=== PATIENT | male | born 1960 | race Caucasian/White ===

== ENCOUNTER 2021-04-30 06:15 | Emergency (ER) | payer MEDICARE, OTHER, SELFPAY ==
--- NOTE | ~2021-04-30 | CT_ITS ---
EXAMINATION: CT ABDOMEN AND PELVIS WITHOUT CONTRAST CLINICAL INFORMATION: Hematuria COMPARISON: None TECHNIQUE: Multidetector volumetric imaging was performed from the superior aspect of the liver through the pubic symphysis. Sagittal and coronal reformatted images were obtained on the technologist's workstation. This CT examination was performed using dose optimization techniques as appropriate, variously including the following: *Automated exposure control *Adjustment of mA and/or kV according to patient size (this includes techniques or standardized protocols for targeted exams where dose is matched to indication/reason for exam; i.e. extremities or head) *Use of iterative reconstruction technique DLP: 277 mGy-cm FINDINGS: Limited exam due to lack of IV contrast. LUNG BASES: The visualized lung bases are unremarkable. LIVER, GALLBLADDER, AND BILIARY TREE: The liver is normal in size, shape, and attenuation. No focal hepatic lesion or biliary ductal dilatation is present. The gallbladder is unremarkable with no evidence of radiopaque gallstones, gallbladder wall thickening, or obvious pericholecystic inflammatory changes. PANCREAS: Unremarkable. SPLEEN: Unremarkable. ADRENAL GLANDS: Unremarkable. KIDNEYS AND URETERS: The kidneys are normal in size, shape, and attenuation. No hydronephrosis, hydroureter, or calculi seen. No perinephric stranding. BLADDER: There is diffuse bladder wall thickening. There are no radiopaque calculi. GASTROINTESTINAL TRACT: There is scattered diverticuli, stool and gas seen throughout the colon without distention. The small bowel loops are normal caliber. Appendix is not visualized. There is no free air or free fluid. ABDOMINAL WALL: No significant hernia is appreciated. LYMPH NODES: Normal. VASCULAR: There is atherosclerotic calcification of abdominal aorta without aneurysmal dilatation. PELVIC VISCERA: The prostate gland is mildly enlarged with central gland calcification. OSSEOUS STRUCTURES: There is grade 2 anterolisthesis L5 over S1 with moderate spondylosis. No lytic or sclerotic process seen. CT/CT abdomen pelvis wo con IMPRESSION: No radiopaque urolith or hydroureteronephrosis. Empty bladder with diffuse bladder wall thickening. Mild prostate enlargement with central gland calcification. Colonic diverticulosis without diverticulitis. Moderate constipation. Grade 2 anterolisthesis L5 over S1 with moderate to significant spondylosis.
[2021-04-30 06:42] VITALS: BP 111/71; PULSE 105; RESP 18; TEMP 37.1; O2SAT 96; BMI 19.7
--- NOTE | 2021-04-30 06:46 | ED_ITS ---
HPI - Male Genitourinary General Chief complaint: Urogenital-Male Stated complaint: blood in urine Time Seen by Provider: 04/30/21 06:48 Source: patient Mode of arrival: ambulatory Limitations: no limitations History of Present Illness MD Complaint: other (dysuria and hematuria) Onset (ago): hour(s) (last several ) Duration: intermittent Location: penis Severity: moderate Quality: burning Relieving factors: none Exacerbating factors: urination Associated symptoms: Reports blood in urine Related Data Previous Rx's Medication Instructions Recorded cefuroxime axetil 500 mg tablet 500 mg PO BID 10 Days #20 tab 04/30/21 ondansetron 4 mg disintegrating 4 mg PO Q8H PRN #20 tab 04/30/21 tablet phenazopyridine 100 mg tablet 100 mg PO TID PRN #6 tab 04/30/21 (Pyridium) Allergies Allergy/AdvReac Type Severity Reaction Status Date / Time No Known Allergies Allergy Verified 04/30/21 06:44 Review of Systems Review of Systems: Constitutional : No Weight loss, No Fever, No Chills ENT/Mouth : No sore throat, No Rhinorrhea Eyes: No Swelling, No Redness Cardiovascular : No Chest Pain, No SOB, NoEdema Respiratory : No Cough, No Sputum, No Wheezing Gastrointestinal : no Nausea, no Vomiting, no Diarrhea, no abdominal Pain, No Hematochezia, No Melena Genitourinary : pos Dysuria, No Urinary Frequency, pos Hematuria, No Urgency Musculoskeletal : No joint pain, No Myalgias, No Joint Swelling Skin : No Skin Lesions, No rash Neuro : No Weakness, No Numbness, No Dizziness, No Headache Psych : No Anxiety/Panic, No Depression Heme/Lymph: No Bruising, No Lymphadenopathy Endocrine : No Polyuria, No Polydipsia All other systems reviewed and are negative. [facility] Past Medical History Attestation statement: The following information was validated with the patient. Medical History COPD (chronic obstructive pulmonary disease) Hypertension Social History Social History (Updated 04/30/21 @ 06:54 by Venita Kay DO) Patient Tobacco Use Status: Current everyday Tobacco user Use of substances other than those prescribed or required for medical reasons: No Advance Directives: No Advance Directives Information Provided: No Physical Exam Vital Signs: Vital Signs: Last Vital Signs Temp 98.8 F 04/30/21 06:42 Pulse 105 H 04/30/21 06:42 Resp 18 04/30/21 06:42 BP 111/71 04/30/21 06:42 Pulse Ox 96 04/30/21 06:42 Body Mass Index 19.7 Appearance: Alert. Oriented X3. No acute distress. Eyes: Pupils equal, round and reactive to light. ENT: Pharynx normal. Neck: Normal inspection. Neck supple. CVS: Normal heart rate and rhythm. Pulses normal. Respiratory: No respiratory distress. Breath sounds normal. Abdomen: Soft and non-tender. Skin: Skin warm and dry. Normal skin color. Normal skin turgor. Extremities: No lower extremity edema. No calf ttp Neuro: Oriented X 3. No motor deficit. No sensory deficit. Course Course Course Narrative: able to urinate, tolerating PO, kidney function stable, UTI no signs of sepsis can be managed at home chronically elevated WBC, no retention of urine MDM - Male Genitourinary MDM Narrative Medical decision making narrative: 61 yo male with COPD no AC therapy here with dysuria and hematuria - at this time labs, CT scan for mass, UA - dispo per results and findings. Likely UTI vs mass. Lab Data Result diagrams: 04/30/21 07:19 04/30/21 07:19 Labs: Lab Results 04/30/21 04/30/21 04/30/21 Range/Units 07:19 07:19 07:19 WBC 13.7 H (4.8-10.8) X10*3/uL RBC 4.11 L (4.60-5.80) X10*6/uL Hgb 13.2 L (14.0-18.0) g/dl Hct 39.6 L (42-52) % MCV 96.4 (80-98) fL MCH 32.1 (27.0-33.0) pg MCHC 33.3 (31.0-36.0) g/dl RDW 13.0 (11.0-16.0) % Plt Count 185 (160-400) X10*3/uL MPV 10.6 (9.4-12.4) fL Immature Gran % (Auto) 0.3 (0.0-0.4) % Neut % (Auto) 77.5 H (45-73) % Lymph % (Auto) 11.6 L (20-40) % [place] % (Auto) 9.4 (2-11) % Eos % (Auto) 1.0 (0-4) % Baso % (Auto) 0.2 (0-2) % Lymph # (Auto) 1.6 (1.2-4.9) X10*3/uL [place] # (Auto) 1.3 H (0.1-1.2) X10*3/uL Eos # (Auto) 0.1 (0.0-0.4) X10*3/uL Baso # (Auto) 0.0 (0.0-0.2) X10*3/uL Abs Immat Gran (auto) 0.04 H (0.00-0.03) X10*3/uL Absolute Neuts (auto) 10.6 H (2.0-8.3) X10*3/uL Absolute Nucleated RBC 0.000 (0.0-0.012) X10*3/uL Nucleated RBC % (auto) 0.0 (0.0-0.2) /100WBC Sodium 140 (135-145) mmol/L Potassium 4.7 (3.3-5.1) mmol/L Chloride 103 (96-108) mmol/L Carbon Dioxide 29 (22-29) mmol/L Anion Gap 13 (12-20) BUN 6 L (9-16) mg/dL Creatinine 0.89 (0.5-1.4) mg/dL Estim Creat Clear Calc 62.6 Estimated GFR > 60 Random Glucose 113 (60-115) mg/dL Lactic Acid 0.7 (0.5-2.0) mmol/L Calcium 9.4 (8.4-10.2) mg/dL Magnesium 2.7 H (1.6-2.6) mg/dL Total Bilirubin 0.8 (0.0-1.0) mg/dL Direct Bilirubin 0.3 (0.0-0.5) mg/dL AST 24 (5-37) U/L ALT 20 (0-40) U/L Alkaline Phosphatase 57 (39-117) U/L Total Protein 7.2 (6.5-8.0) g/dL Albumin 4.4 (3.5-5.0) g/dL Urine Color Urine Appearance Urine pH (5.0-8.0) Ur Specific [place] (1.005-1.025) Urine Protein (NEG-TRACE) MG/DL Urine Glucose (UA) (NEG) MG/DL Urine Ketones (NEG) MG/DL Urine Blood (NEG) Urine Nitrite (NEG) Ur Leukocyte Esterase (NEG) Urine RBC (0) /HPF Urine WBC (0-4) /HPF Ur Squamous Epith Cells /LPF Urine Bacteria /LPF 04/30/21 Range/Units 07:19 WBC (4.8-10.8) X10*3/uL RBC (4.60-5.80) X10*6/uL Hgb (14.0-18.0) g/dl Hct (42-52) % MCV (80-98) fL MCH (27.0-33.0) pg MCHC (31.0-36.0) g/dl RDW (11.0-16.0) % Plt Count (160-400) X10*3/uL MPV (9.4-12.4) fL Immature Gran % (Auto) (0.0-0.4) % Neut % (Auto) (45-73) % Lymph % (Auto) (20-40) % [place] % (Auto) (2-11) % Eos % (Auto) (0-4) % Baso % (Auto) (0-2) % Lymph # (Auto) (1.2-4.9) X10*3/uL [place] # (Auto) (0.1-1.2) X10*3/uL Eos # (Auto) (0.0-0.4) X10*3/uL Baso # (Auto) (0.0-0.2) X10*3/uL Abs Immat Gran (auto) (0.00-0.03) X10*3/uL Absolute Neuts (auto) (2.0-8.3) X10*3/uL Absolute Nucleated RBC (0.0-0.012) X10*3/uL Nucleated RBC % (auto) (0.0-0.2) /100WBC Sodium (135-145) mmol/L Potassium (3.3-5.1) mmol/L Chloride (96-108) mmol/L Carbon Dioxide (22-29) mmol/L Anion Gap (12-20) BUN (9-16) mg/dL Creatinine (0.5-1.4) mg/dL Estim Creat Clear Calc Estimated GFR Random Glucose (60-115) mg/dL Lactic Acid (0.5-2.0) mmol/L Calcium (8.4-10.2) mg/dL Magnesium (1.6-2.6) mg/dL Total Bilirubin (0.0-1.0) mg/dL Direct Bilirubin (0.0-0.5) mg/dL AST (5-37) U/L ALT (0-40) U/L Alkaline Phosphatase (39-117) U/L Total Protein (6.5-8.0) g/dL Albumin (3.5-5.0) g/dL Urine Color TAWNYA Urine Appearance CLOUDY Urine pH 7.0 (5.0-8.0) Ur Specific [place] 1.020 (1.005-1.025) Urine Protein 2+ H (NEG-TRACE) MG/DL Urine Glucose (UA) NEG (NEG) MG/DL Urine Ketones NEG (NEG) MG/DL Urine Blood 3+ H (NEG) Urine Nitrite POS H (NEG) Ur Leukocyte Esterase 3+ H (NEG) Urine RBC 50-75 H (0) /HPF Urine WBC 76-150 H (0-4) /HPF Ur Squamous Epith Cells NONE /LPF Urine Bacteria 1+ /LPF Discharge Plan Discharge Clinical Impression: Urinary tract infection Patient Disposition: Home, Self-Care Instructions: Urinary Tract Infection in Men (ED) Additional Instructions: return to ED for any worsening symptoms or concerns IMPRESSION:? No radiopaque urolith or hydroureteronephrosis. ? Empty bladder with diffuse bladder wall thickening. ? Mild prostate enlargement with central gland calcification. Prescriptions: New cefuroxime axetil 500 mg tablet 500 mg PO BID 10 Days Qty: 20 RF: 0 ondansetron 4 mg tablet,disintegrating 4 mg PO Q8H PRN (Reason: nausea and vomiting) Qty: 20 RF: 0 phenazopyridine [Pyridium] 100 mg tablet 100 mg PO TID PRN (Reason: pain) Qty: 6 RF: 0 Referrals: Gilbert Christianson NP [Primary Care Provider] - 2 days Stand Alone Forms: Work/School Release
[2021-04-30 07:26] LABS: MANUAL DIFF FLAG NO
[2021-04-30 07:29] LABS: Basophils Percent Auto 0.2 % (0-2); Eosinophils Absolute Auto 0.1 X10*3/uL (0.0-0.4); Hematocrit 39.6 % (42-52); Hemoglobin 13.2 g/dl (14.0-18.0); Imm Gran Abs Auto 0.04 X10*3/uL (0.00-0.03); Imm Gran Pct Auto 0.3 % (0.0-0.4); Lymphocytes Absolute Auto 1.6 X10*3/uL (1.2-4.9); Lymphocytes Percent Auto 11.6 % (20-40); Mean Corpuscular HGB Conc 33.3 g/dl (31.0-36.0); Mean Corpuscular Hemoglobin 32.1 pg (27.0-33.0); Mean Corpuscular Volume 96.4 fL (80-98); Mean Platelet Volume 10.6 fL (9.4-12.4); Monocytes Absolute Auto 1.3 X10*3/uL (0.1-1.2); Monocytes Percent Auto 9.4 % (2-11); Neutrophils Absolute Auto 10.6 X10*3/uL (2.0-8.3); Neutrophils Percent Auto 77.5 % (45-73); Platelet Count 185 X10*3/uL (160-400); Red Blood Count 4.11 X10*6/uL (4.60-5.80); White Blood Count 13.7 X10*3/uL (4.8-10.8)
[2021-04-30 07:30] LABS: Glucose Urine UA NEG (NEG); Leukocyte Esterase Urine 3+ (NEG); Nitrite Urine POS (NEG); UACC Culture Trigger YES; Urine Blood 3+ (NEG); Urine Ketones NEG (NEG); Urine Protein 2+ MG/DL (NEG-TRACE)
[2021-04-30 07:31] LABS: Appearance Urine CLOUDY; Color Urine AMBER
[2021-04-30 07:41] LABS: Bacteria Urine 1+ /LPF; RBC Urine 50-75 /HPF (0)
[2021-04-30 07:48] LABS: Lactic Acid 0.7 mmol/L (0.5-2.0)
[2021-04-30 07:53] LABS: Alanine Aminotransferase 20 U/L (0-40); Albumin Level 4.4 g/dL (3.5-5.0); Alkaline Phosphatase 57 U/L (39-117); Anion Gap 13 (12-20); Aspartate Amino Transferase 24 U/L (5-37); Bilirubin Direct 0.3 mg/dL (0.0-0.5); Bilirubin Total 0.8 mg/dL (0.0-1.0); Blood Urea Nitrogen 6 mg/dL (9-16); Calcium 9.4 mg/dL (8.4-10.2); Carbon Dioxide 29 mmol/L (22-29); Chloride 103 mmol/L (96-108); Creatinine Clr Calc Pharmacy 62.6; Estimated Glomerular Filt Rate > 60; Glucose Random 113 mg/dL (60-115); Magnesium 2.7 mg/dL (1.6-2.6); Potassium 4.7 mmol/L (3.3-5.1); Sodium 140 mmol/L (135-145); Total Protein 7.2 g/dL (6.5-8.0)
[2021-04-30] MEDS: cefTRIAXone sodium 1 GM in 0.9 % Sodium Chloride 50 ML IV (08:02)
[2021-04-30] MEDS: Albuterol Sulfate (0.083%) 2.5 MG/3 ML VIAL.NEB INHALE (08:08)
[2021-04-30 08:11] VITALS: PULSE 94; O2SAT 98
[2021-04-30 08:45] VITALS: BP 138/82; PULSE 88; RESP 18; O2SAT 95
== END 2021-04-30 08:47 | disposition home or self-care (01) ==
PROVIDERS: Emergency Provider Emergency Medicine; PCP Nurse Practitioner Family
DX: N39.0 Urinary tract infection, site not specified (principal); I10 Essential (primary) hypertension; F17.210 Nicotine dependence, cigarettes, uncomplicated
CPT/HCPCS: 36415; 74176; 80048; 80076; 81001; 83605; 83735; 85025; 87040; 87086; 87088; 87186; 94640; 96365; 99283; 99284; J0696

== ENCOUNTER 2022-01-30 12:39 | Emergency (ER) | payer MEDICARE, OTHER, SELFPAY ==
--- NOTE | ~2022-01-30 | XR_ITS ---
EXAMINATION: XR CHEST CLINICAL INFORMATION: Shortness of breath COMPARISON: Chest radiograph 10/10/[address] abdomen pelvis 04/30/2021 TECHNIQUE: 2 views of the chest were obtained. FINDINGS: Again seen are markedly hyperinflated lungs consistent with COPD. No infiltrates, effusions or lung masses are seen. Heart size is normal. XR/XR chest 2V IMPRESSION: COPD. No acute intrathoracic disease
[2022-01-30 12:54] VITALS: BP 145/65; PULSE 101; RESP 24; TEMP 36.9; O2SAT 94; BMI 17.7
[2022-01-30 14:28] LABS: MANUAL DIFF FLAG NO
[2022-01-30 14:33] LABS: Basophils Percent Auto 0.3 % (0-2); Eosinophils Percent Auto 0.3 % (0-4); Hematocrit 41.4 % (42.0-52.0); Hemoglobin 13.6 g/dl (14.0-18.0); Imm Gran Abs Auto 0.04 X10*3/uL (0.00-0.03); Imm Gran Pct Auto 0.3 % (0.0-0.4); Lymphocytes Absolute Auto 1.1 X10*3/uL (1.2-4.9); Mean Corpuscular HGB Conc 32.9 g/dl (31.0-36.0); Mean Corpuscular Hemoglobin 31.6 pg (27.0-33.0); Mean Corpuscular Volume 96.3 fL (80.0-98.0); Mean Platelet Volume 10.5 fL (9.4-12.4); Monocytes Absolute Auto 0.8 X10*3/uL (0.1-1.2); Monocytes Percent Auto 6.5 % (2-11); Neutrophils Absolute Auto 9.7 x10*3/uL (2.0-8.3); Neutrophils Percent Auto 83.6 % (45-73); Platelet Count 254 X10*3/uL (160-400); Red Cell Distribution Width 12.1 % (11.0-16.0); White Blood Count 11.7 X10*3/uL (4.8-10.8)
[2022-01-30 14:50] LABS: Alanine Aminotransferase 23 U/L (0-40); Albumin Level 4.4 g/dL (3.5-5.0); Alkaline Phosphatase 84 U/L (39-117); Anion Gap 15 (12-20); Aspartate Amino Transferase 28 U/L (5-37); Bilirubin Total 0.7 mg/dL (0.0-1.0); Blood Urea Nitrogen 14 mg/dL (9-16); Calcium 10.2 mg/dL (8.4-10.2); Carbon Dioxide 31 mmol/L (22-29); Chloride 90 mmol/L (96-108); Creatinine Clr Calc Pharmacy 57.8; Estimated Glomerular Filt Rate > 60; Glucose Random 203 mg/dL (60-115); Potassium 5.2 mmol/L (3.3-5.1); Sodium 131 mmol/L (135-145); Total Protein 7.5 g/dL (6.5-8.0)
[2022-01-30 15:01] LABS: COVID-19 Test Negative (Negative); IDNOW Serial# 16C4AD1C
[2022-01-30 15:02] LABS: Influenza A Negative (Negative); Influenza B2 Negative (Negative)
[2022-01-30 17:50] VITALS: BP 144/88; PULSE 98; RESP 20; O2SAT 95
--- NOTE | 2022-01-30 17:51 | ECG_ITS ---
Test Reason : dyspnea Blood Pressure : / mmHG Vent. Rate : 089 BPM Atrial Rate : 089 BPM P-R Int : 140 ms QRS Dur : 070 ms QT Int : 320 ms P-R-T Axes : 083 071 073 degrees QTc Int : 389 ms Normal sinus rhythm Septal infarct (cited on or before 10-OCT-2019) Abnormal ECG When compared with ECG of 10-OCT-2019 11:29, No significant change was found Referred By: Gisel Trinidad Electronically Signed By:Darrell Man
--- NOTE | 2022-01-30 17:53 | ED.SOB ---
HPI - SOB/Dyspnea General Chief Complaint: Dyspnea Stated Complaint: DIFFICULTY BREATHING, CONGESTION Time Seen by Provider: 01/30/22 17:41 Source: patient Mode of arrival: wheelchair Limitations: no limitations History of Present Illness HPI Narrative: 62 yo male with history of HTN, COPD who continues to smoke cigarettes here with increasing SOB, productive cough with green sputum x 4 days. No CP, leg swelling or leg pain, or fevers. Using nebulizers at home with continued symptoms Related Data Previous Rx's Medication Instructions Recorded cefuroxime axetil 500 mg tablet 500 mg PO BID 10 Days #20 tab 04/30/21 ondansetron 4 mg disintegrating 4 mg PO Q8H PRN #20 tab 04/30/21 tablet phenazopyridine 100 mg tablet 100 mg PO TID PRN #6 tab 04/30/21 (Pyridium) azithromycin 250 mg tablet 250 mg PO DAILY 4 Days #4 tab 01/30/22 prednisone 20 mg tablet 60 mg PO DAILY #12 tab 01/30/22 Allergies Allergy/AdvReac Type Severity Reaction Status Date / Time No Known Allergies Allergy Verified 01/30/22 12:54 Review of Systems Review of Systems: Yes all other systems are reviewed and are negative Constitutional: Constitutional: Reports no additional constitutional complaints, Denies body ache(s), Denies chills, Denies fever(s), Denies headache(s) and Denies weakness Eyes: Eyes: Reports no additional eye complaints and Denies change in vision ENT: Reports system reviewed and no additional complaints, except as documented, Denies dizziness, Denies headache(s), Denies nasal congestion, Denies nasal discharge and Denies neck pain Cardiovascular: Cardiovascular: Reports no additional cardiovascular complaints, Denies chest pain, Denies leg edema and Reports dyspnea Respiratory: Respiratory: Reports no additional respiratory complaints, Reports cough and Reports dyspnea Gastrointestinal: Gastrointestinal: Reports no additional gastrointestinal complaints, Denies abdominal pain, Denies diarrhea, Denies nausea and Denies vomiting Genitourinary: Genitourinary: Denies urinary incontinence Musculoskeletal: Musculoskeletal: Reports no additional musculoskeletal complaints, Denies back pain, Denies arthralgias, Denies joint swelling, Denies neck pain, Denies numbness and Denies tingling Integumentary/Breasts: Skin/Breast: Reports system reviewed and no additional complaints, except as docu and Denies rash Neurologic: Reports system reviewed and no additional complaints, except as documented, Denies Abnormal speech present, Denies dizziness, Denies headache(s), Denies numbness, Denies tingling and Denies weakness PMFSH Past Medical History Attestation statement: The following information was validated with the patient. Source: old records reviewed and nursing notes reviewed Medical History COPD (chronic obstructive pulmonary disease) Hypertension Social History Social History Patient Tobacco Use Status: Current everyday Tobacco user Advance Directives: No Advance Directives Information Provided: Yes Physical Exam Vital Signs: Vital Signs: Last Vital Signs Temp 98.4 F 01/30/22 12:54 Pulse 100 01/30/22 18:08 Resp 20 01/30/22 18:08 BP 145/82 H 01/30/22 18:08 Pulse Ox 97 01/30/22 18:08 BMI result Body Mass Index 17.7 Const: General: in distress Nutritional Appearance: thin Orientation/consciousness: patient oriented x3 Limitations: no limitations HEENT: Head: Yes normal to inspection Ears: hearing grossly normal bilaterally General nose exam: Normal external nose present Face and sinus: Yes normal facial exam Mouth: Normal oral and palatal mucosa present Throat: Yes posterior oropharynx normal Eyes: General: appearance normal, both eyes and all related structures Pupils: Equal, round and reactive pupils present Neck: Neck: Yes normal visual inspection Chest: Chest palpation & inspection: normal inspection of the chest Resp: Other: Tachypnea, leaning forward, speaking 1-2 words, diminished BS throughout Cardio: Rate: regular rate Rhythm: regular rhythm Peripheral pulses: Peripheral pulses 2+ throughout GI: Inspection: Yes normal to inspection Palpation (GI): Soft to palpation and nontender Auscultation: normal bowel sounds Back/Spine/Pelvis: Thoracic/Lumbar Spine: thoracic and lumbar spine normal to inspection Skin: General skin exam: no rashes or lesions noted Neuro: General: patient oriented x3, no focal motor deficits and normal sensation to monofilament Cranial nerves: Yes Equal, round and reactive pupils present Cognition (Neuro): normal cognition Speech: No Abnormal speech present Gait exam (Neuro): Normal gait present Motor exam (neuro): 5/5 motor strength present throughout Extrem: General: Yes normal to inspection, Yes no pedal edema and Yes no calf tenderness Course Course Course Narrative: [age] yo male w/ history of HTN, COPD here with increasing SOB, productive cough x 4 days. On arrival the patient is tachypneic, tachycardic, leaning forward, speaking 1-2 word phrases, diminished breath sounds throughout. Will obtain labs, EKG, chest x-ray, COVID screen. This time infection is suspected. Antibiotics ordered. Will give Solu-Medrol, DuoNeb. Reevaluation(s) Reevaluation #1: Labs show mild leukocytosis was is actually chronic and improved from previous. Corrected sodium was 133. EKG and troponin are negative. Chest x-ray shows no acute finding with the exception of COPD. COVID and flu screen are negative. Patient is resting more comfortably but with any movement is quite tachypneic. 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 I did recommend this d/t tachypnea with exertion although oxygen saturation has been stable. Patient tells me that he will continue his nebulizers at home. He tells me overall he is feeling better and declined admission. I instructed him that he is welcome to return at any time. Time: 19:00 MDM - SOB/Dyspnea MDM Narrative Medical decision making narrative: copd exacerbation, pna, viral syndrome PE -less likely with no clinical findings concerning for dvt, no hypoxia. Tachypnea secondary to CLD. 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 Medical Records Attestation: I reviewed the patient's medical records. Lab Data Attestation: I reviewed the patient's lab results. Result diagrams: 01/30/22 14:14 01/30/22 14:14 Labs: Lab Results 01/30/22 01/30/22 01/30/22 Range/Units 14:14 14:14 14:17 WBC 11.7 H (4.8-10.8) X10*3/uL RBC 4.30 L (4.60-5.80) X10*6/uL Hgb 13.6 L (14.0-18.0) g/dl Hct 41.4 L (42.0-52.0) % MCV 96.3 (80.0-98.0) fL MCH 31.6 (27.0-33.0) pg MCHC 32.9 (31.0-36.0) g/dl RDW 12.1 (11.0-16.0) % Plt Count 254 (160-400) X10*3/uL MPV 10.5 (9.4-12.4) fL Immature Gran % (Auto) 0.3 (0.0-0.4) % Neut % (Auto) 83.6 H (45-73) % Lymph % (Auto) 9.0 L (20-40) % [place] % (Auto) 6.5 (2-11) % Eos % (Auto) 0.3 (0-4) % Baso % (Auto) 0.3 (0-2) % Lymph # (Auto) 1.1 L (1.2-4.9) X10*3/uL [place] # (Auto) 0.8 (0.1-1.2) X10*3/uL Eos # (Auto) 0.0 (0.0-0.4) X10*3/uL Baso # (Auto) 0.0 (0.0-0.2) X10*3/uL Abs Immat Gran (auto) 0.04 H (0.00-0.03) X10*3/uL Absolute Neuts (auto) 9.7 H (2.0-8.3) x10*3/uL Absolute Nucleated RBC 0.000 (0.0-0.012) X10*3/uL Nucleated RBC % (auto) 0.0 (0.0-0.2) /100WBC PT (9.9-13.0) SEC INR (0.9-1.1) Sodium 131 L (135-145) mmol/L Potassium 5.2 H (3.3-5.1) mmol/L Chloride 90 L (96-108) mmol/L Carbon Dioxide 31 H (22-29) mmol/L Anion Gap 15 (12-20) BUN 14 (9-16) mg/dL Creatinine 0.91 (0.5-1.4) mg/dL Estim Creat Clear Calc 57.8 Estimated GFR > 60 Random Glucose 203 H D (60-115) mg/dL Lactic Acid (0.5-2.0) mmol/L Calcium 10.2 D (8.4-10.2) mg/dL Total Bilirubin 0.7 (0.0-1.0) mg/dL AST 28 (5-37) U/L ALT 23 (0-40) U/L Alkaline Phosphatase 84 D (39-117) U/L Troponin I High Sens (<3.5-35.0) ng/L Total Protein 7.5 (6.5-8.0) g/dL Albumin 4.4 (3.5-5.0) g/dL COVID-19 (SKYLER) (Negative) COVID-19 Clin Com Influenza Type A (ALAN) Negative (Negative) Influenza Type B (ALAN) Negative (Negative) Influenza A & B Note See Note 01/30/22 01/30/22 01/30/22 Range/Units 14:17 18:01 18:01 WBC (4.8-10.8) X10*3/uL RBC (4.60-5.80) X10*6/uL Hgb (14.0-18.0) g/dl Hct (42.0-52.0) % MCV (80.0-98.0) fL MCH (27.0-33.0) pg MCHC (31.0-36.0) g/dl RDW (11.0-16.0) % Plt Count (160-400) X10*3/uL MPV (9.4-12.4) fL Immature Gran % (Auto) (0.0-0.4) % Neut % (Auto) (45-73) % Lymph % (Auto) (20-40) % [place] % (Auto) (2-11) % Eos % (Auto) (0-4) % Baso % (Auto) (0-2) % Lymph # (Auto) (1.2-4.9) X10*3/uL Branch # (Auto) (0.1-1.2) X10*3/uL Eos # (Auto) (0.0-0.4) X10*3/uL Baso # (Auto) (0.0-0.2) X10*3/uL Abs Immat Gran (auto) (0.00-0.03) X10*3/uL Absolute Neuts (auto) (2.0-8.3) x10*3/uL Absolute Nucleated RBC (0.0-0.012) X10*3/uL Nucleated RBC % (auto) (0.0-0.2) /100WBC PT 11.4 (9.9-13.0) SEC INR 1.0 (0.9-1.1) Sodium (135-145) mmol/L Potassium (3.3-5.1) mmol/L Chloride (96-108) mmol/L Carbon Dioxide (22-29) mmol/L Anion Gap (12-20) BUN (9-16) mg/dL Creatinine (0.5-1.4) mg/dL Estim Creat Clear Calc Estimated GFR Random Glucose (60-115) mg/dL Lactic Acid (0.5-2.0) mmol/L Calcium (8.4-10.2) mg/dL Total Bilirubin (0.0-1.0) mg/dL AST (5-37) U/L ALT (0-40) U/L Alkaline Phosphatase (39-117) U/L Troponin I High Sens < 3.5 (<3.5-35.0) ng/L Total Protein (6.5-8.0) g/dL Albumin (3.5-5.0) g/dL COVID-19 (SKYLER) Negative (Negative) COVID-19 Clin Com See Note Influenza Type A (ALAN) (Negative) Influenza Type B (ALAN) (Negative) Influenza A & B Note 01/30/22 Range/Units 18:01 WBC (4.8-10.8) X10*3/uL RBC (4.60-5.80) X10*6/uL Hgb (14.0-18.0) g/dl Hct (42.0-52.0) % MCV (80.0-98.0) fL MCH (27.0-33.0) pg MCHC (31.0-36.0) g/dl RDW (11.0-16.0) % Plt Count (160-400) X10*3/uL MPV (9.4-12.4) fL Immature Gran % (Auto) (0.0-0.4) % Neut % (Auto) (45-73) % Lymph % (Auto) (20-40) % Branch % (Auto) (2-11) % Eos % (Auto) (0-4) % Baso % (Auto) (0-2) % Lymph # (Auto) (1.2-4.9) X10*3/uL Branch # (Auto) (0.1-1.2) X10*3/uL Eos # (Auto) (0.0-0.4) X10*3/uL Baso # (Auto) (0.0-0.2) X10*3/uL Abs Immat Gran (auto) (0.00-0.03) X10*3/uL Absolute Neuts (auto) (2.0-8.3) x10*3/uL Absolute Nucleated RBC (0.0-0.012) X10*3/uL Nucleated RBC % (auto) (0.0-0.2) /100WBC PT (9.9-13.0) SEC INR (0.9-1.1) Sodium (135-145) mmol/L Potassium (3.3-5.1) mmol/L Chloride (96-108) mmol/L Carbon Dioxide (22-29) mmol/L Anion Gap (12-20) BUN (9-16) mg/dL Creatinine (0.5-1.4) mg/dL Estim Creat Clear Calc Estimated GFR Random Glucose (60-115) mg/dL Lactic Acid 1.0 (0.5-2.0) mmol/L Calcium (8.4-10.2) mg/dL Total Bilirubin (0.0-1.0) mg/dL AST (5-37) U/L ALT (0-40) U/L Alkaline Phosphatase (39-117) U/L Troponin I High Sens (<3.5-35.0) ng/L Total Protein (6.5-8.0) g/dL Albumin (3.5-5.0) g/dL COVID-19 (SKYLER) (Negative) COVID-19 Clin Com Influenza Type A (AALN) (Negative) Influenza Type B (ALAN) (Negative) Influenza A & B Note ECG Data Attestation: I personally reviewed and interpreted this ECG as follows: ECG interpretation date: 01/30/22 ECG interpretation time: 18:11 Interpretation: Normal sinus rhythm with a rate 89, normal ND, normal QRS, normal QT Discharge Plan Discharge Clinical Impression: Acute exacerbation of chronic obstructive airways disease Patient Disposition: Home, Self-Care Instructions: COPD (Chronic Obstructive Pulmonary Disease) (ED) Additional Instructions: We discussed staying overnight for treatment with steroids, antibitiocs and nebulizers but you declined this Continue your nebulizers at home Your next dose of antibiotics and steroids start tomorrow You are welcome to return any time Prescriptions: New azithromycin 250 mg tablet 250 mg PO DAILY 4 Days Qty: 4 0RF Rx Instructions: start on day 2 of therapy prednisone 20 mg tablet 60 mg PO DAILY Qty: 12 0RF No Action cefuroxime axetil 500 mg tablet 500 mg PO BID 10 Days Qty: 20 0RF ondansetron 4 mg tablet,disintegrating 4 mg PO Q8H PRN (Reason: nausea and vomiting) Qty: 20 0RF phenazopyridine [Pyridium] 100 mg tablet 100 mg PO TID PRN (Reason: pain) Qty: 6 0RF Referrals: Gilbert Christianson NP [Primary Care Provider] - 1 week
[2022-01-30 18:02] VITALS: PULSE 95; RESP 21; O2SAT 98
[2022-01-30] MEDS: Albuterol/Iprat 2.5/0.5MG 3 ML AMPUL.NEB INHALE (18:02)
[2022-01-30 18:08] VITALS: BP 145/82; PULSE 100; RESP 20; O2SAT 97
[2022-01-30] MEDS: methylPREDNISolone Sod Succ 125 MG/2 ML VIAL IVPUSH (18:08)
[2022-01-30] MEDS: cefTRIAXone sodium 1 GM in 0.9 % Sodium Chloride 50 ML IV (18:09)
[2022-01-30 18:32] LABS: Prothrombin Time 11.4 SEC (9.9-13.0)
[2022-01-30 18:36] LABS: Troponin-I High Sensitivity < 3.5 ng/L (<3.5-35.0)
[2022-01-30] MEDS: Azithromycin 500 MG TABLET PO (19:41)
== END 2022-01-30 20:20 | disposition home or self-care (01) ==
PROVIDERS: Nurse Practitioner Family; Emergency Provider Emergency Medicine; PCP Nurse Practitioner Family
DX: J44.1 Chronic obstructive pulmonary disease with (acute) exacerbation (principal); R06.02 Shortness of breath; R00.0 Tachycardia, unspecified; Z20.822 Contact with and (suspected) exposure to COVID-19; I10 Essential (primary) hypertension; F17.200 Nicotine dependence, unspecified, uncomplicated
CPT/HCPCS: 71046; 80053; 83605; 84484; 85025; 85610; 87040; 87502; 87635; 93005; 94640; 96365; 96375; 99284; J0696; J2930

== ENCOUNTER 2022-09-16 21:12 | Emergency (ER) | payer MEDICARE, OTHER, SELFPAY ==
--- NOTE | ~2022-09-16 | CT_ITS ---
EXAMINATION: CT angio head neck, CT head/brain wo IV con, CT cervical spine wo IV con CLINICAL INFORMATION: Reason for Exam TIA/ CVA, slurred speech COMPARISON: None. TECHNIQUE: Initial noncontrast business analysis professional imaging of the head and cervical spine was performed. Noncontrast head CT was also performed. Test bolus sequences followed by intravenous administration 70 mL of Omnipaque 350. Helical imaging was performed in the axial plane from the aortic arch to the skull vertex. Delayed postcontrast imaging of the head was also performed. The data was processed at the operating room technologist's workstation for generation of MIP sequences. Angled MIPs and volume rendered reformatted images were also generated at an offline 3D workstation. Stenoses are assessed in accordance with NASCET criteria unless otherwise indicated. DLP: 1534 mGy-cm This CT examination was performed using dose optimization techniques as appropriate, variously including the following: *Automated exposure control. *Adjustment of mA and/or kV according to patient size (this includes techniques or standardized protocols for targeted exams where dose is matched to indication/reason for exam; i.e. extremities or head). *Use of iterative reconstruction technique. FINDINGS: CT Head: No acute osseous or soft tissue abnormality. The mastoid air cells and visualized portions of the paranasal sinuses are well aerated. There is no evidence of acute intracranial hemorrhage or territorial infarction. No abnormal mass effect or midline shift is seen. Teran to white matter differentiation is well preserved. No extra-axial fluid collections are identified. No hydrocephalus. No significant volume loss. There is no abnormal attenuation within the brain parenchyma. Hyperdensity along the distal left M1 and proximal M2 segments corresponding to thrombus as demonstrated on CTA. CT cervical spine: There is no evidence of acute cervical spine fracture. Vertebral bodies remain normal in height. Alignment is maintained. Moderate to advanced multilevel cervical spondylosis. No pre- or paravertebral soft tissue abnormality is identified. CT Neck: The thyroid gland is normal. Large lipomas involving the right supraclavicular fossa and upper anterior chest wall. CT Upper Chest: Moderate pulmonary emphysema. Partially visualized spiculated pulmonary nodule in the left upper lobe. The upper mediastinum are within normal limits. Neck CTA: Aortic Arch: Normal contour and caliber. Classic 3 vessel branching pattern of the aortic arch. Great Vessel Origins: Mild calcified atherosclerotic disease without significant stenosis of the branch origins. Right Common Carotid Artery: No focal stenosis or occlusion. Cervical Right Internal Carotid Artery: Calcific atherosclerotic disease of the carotid bulb and proximal internal carotid artery causing less than 50% stenosis. Left Common Carotid Artery: Mild stenosis of the mid left common carotid artery related to partially calcified atherosclerotic plaque. Cervical Left Internal Carotid Artery: Heavy atherosclerotic calcification of the left carotid bifurcation with complete occlusion of the left internal carotid artery from its origin. There is absent opacification of the entire cervical course of the left ICA. Cervical Right Vertebral Artery: No focal stenosis or occlusion. Cervical Left Vertebral Artery: Slightly dominant No focal stenosis or occlusion. Brain CTA: Intracranial Internal Carotid Arteries: There is gradual reconstitution of the proximal petrous left internal carotid artery which otherwise appears grossly patent throughout its intracranial course. No significant stenosis of the intracranial right internal carotid artery. Right Anterior Cerebral Artery: Normal A1 segment. Normal opacification of the distal CHIO segments. Left Anterior Cerebral Artery: Normal A1 segment. Normal opacification of the distal CHIO segments. Anterior Communicating Artery: Normal. Right Middle Cerebral Artery: Normal M1 segment of the MCA without focal stenosis or occlusion. Normal arborization of the distal segments. Left Middle Cerebral Artery: There is tandem near occlusive thrombus involving the mid to distal M1 segment of the left MCA beginning approximately 6 mm from the vessel origin and long segment occlusion of a left M2 branch in the anterior sylvian fissure. There is some reconstitution of the distal left MCA arterial tree, likely via collateralization. Right Vertebral Artery: Normal V4 segment. Left Vertebral Artery: Normal V4 segment. Basilar Artery: Normal without focal stenosis or occlusion. Normal appearance of the proximal superior cerebellar arteries. Right Posterior Cerebral Artery: Normal P1 segment. Normal opacification of the distal LEAD TINNER segments. Left Posterior Cerebral Artery: Normal P1 segment. Normal opacification of the distal LEAD TINNER segments. Normal opacification of the superior sagittal, straight, transverse, and sigmoid sinuses. CT/CT angio head neck IMPRESSION: 1. 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 Near occlusive thrombi involving the mid to distal M1 segment of the left MCA and complete occlusion of a left M2 branch. 3. No acute intracranial hemorrhage, mass effect, hydrocephalus, or acute territorial edematous infarction. 4. No acute fracture or traumatic malalignment of the cervical spine. 5. Pulmonary emphysema and partially visualized spiculated pulmonary nodule in the left upper lobe, suspicious for malignancy. Recommend further evaluation with dedicated CT of the chest when clinically appropriate. 6. Large right anterior chest wall and supraclavicular lipomas. Impression #1-[address] Ron on 09/16/2022 11:18 PM
--- NOTE | ~2022-09-16 | CT_ITS ---
EXAMINATION: CT angio head neck, CT head/brain wo IV con, CT cervical spine wo IV con CLINICAL INFORMATION: Reason for Exam TIA/ CVA, slurred speech COMPARISON: None. TECHNIQUE: Initial noncontrast structural draftsman imaging of the head and cervical spine was performed. Noncontrast head CT was also performed. Test bolus sequences followed by intravenous administration 70 mL of Omnipaque 350. Helical imaging was performed in the axial plane from the aortic arch to the skull vertex. Delayed postcontrast imaging of the head was also performed. The data was processed at the lab animal technologist's workstation for generation of MIP sequences. Angled MIPs and volume rendered reformatted images were also generated at an offline 3D workstation. Stenoses are assessed in accordance with NASCET criteria unless otherwise indicated. DLP: 1534 mGy-cm This CT examination was performed using dose optimization techniques as appropriate, variously including the following: *Automated exposure control. *Adjustment of mA and/or kV according to patient size (this includes techniques or standardized protocols for targeted exams where dose is matched to indication/reason for exam; i.e. extremities or head). *Use of iterative reconstruction technique. FINDINGS: CT Head: No acute osseous or soft tissue abnormality. The mastoid air cells and visualized portions of the paranasal sinuses are well aerated. There is no evidence of acute intracranial hemorrhage or territorial infarction. No abnormal mass effect or midline shift is seen. Teran to white matter differentiation is well preserved. No extra-axial fluid collections are identified. No hydrocephalus. No significant volume loss. There is no abnormal attenuation within the brain parenchyma. Hyperdensity along the distal left M1 and proximal M2 segments corresponding to thrombus as demonstrated on CTA. CT cervical spine: There is no evidence of acute cervical spine fracture. Vertebral bodies remain normal in height. Alignment is maintained. Moderate to advanced multilevel cervical spondylosis. No pre- or paravertebral soft tissue abnormality is identified. CT Neck: The thyroid gland is normal. Large lipomas involving the right supraclavicular fossa and upper anterior chest wall. CT Upper Chest: Moderate pulmonary emphysema. Partially visualized spiculated pulmonary nodule in the left upper lobe. The upper mediastinum are within normal limits. Neck CTA: Aortic Arch: Normal contour and caliber. Classic 3 vessel branching pattern of the aortic arch. Great Vessel Origins: Mild calcified atherosclerotic disease without significant stenosis of the branch origins. Right Common Carotid Artery: No focal stenosis or occlusion. Cervical Right Internal Carotid Artery: Calcific atherosclerotic disease of the carotid bulb and proximal internal carotid artery causing less than 50% stenosis. Left Common Carotid Artery: Mild stenosis of the mid left common carotid artery related to partially calcified atherosclerotic plaque. Cervical Left Internal Carotid Artery: Heavy atherosclerotic calcification of the left carotid bifurcation with complete occlusion of the left internal carotid artery from its origin. There is absent opacification of the entire cervical course of the left ICA. Cervical Right Vertebral Artery: No focal stenosis or occlusion. Cervical Left Vertebral Artery: Slightly dominant No focal stenosis or occlusion. Brain CTA: Intracranial Internal Carotid Arteries: There is gradual reconstitution of the proximal petrous left internal carotid artery which otherwise appears grossly patent throughout its intracranial course. No significant stenosis of the intracranial right internal carotid artery. Right Anterior Cerebral Artery: Normal A1 segment. Normal opacification of the distal CHIO segments. Left Anterior Cerebral Artery: Normal A1 segment. Normal opacification of the distal CHIO segments. Anterior Communicating Artery: Normal. Right Middle Cerebral Artery: Normal M1 segment of the MCA without focal stenosis or occlusion. Normal arborization of the distal segments. Left Middle Cerebral Artery: There is tandem near occlusive thrombus involving the mid to distal M1 segment of the left MCA beginning approximately 6 mm from the vessel origin and long segment occlusion of a left M2 branch in the anterior sylvian fissure. There is some reconstitution of the distal left MCA arterial tree, likely via collateralization. Right Vertebral Artery: Normal V4 segment. Left Vertebral Artery: Normal V4 segment. Basilar Artery: Normal without focal stenosis or occlusion. Normal appearance of the proximal superior cerebellar arteries. Right Posterior Cerebral Artery: Normal P1 segment. Normal opacification of the distal [employer] segments. Left Posterior Cerebral Artery: Normal P1 segment. Normal opacification of the distal [employer] segments. Normal opacification of the superior sagittal, straight, transverse, and sigmoid sinuses. CT/CT head/brain wo IV con IMPRESSION: 1. 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 Near occlusive thrombi involving the mid to distal M1 segment of the left MCA and complete occlusion of a left M2 branch. 3. No acute intracranial hemorrhage, mass effect, hydrocephalus, or acute territorial edematous infarction. 4. No acute fracture or traumatic malalignment of the cervical spine. 5. Pulmonary emphysema and partially visualized spiculated pulmonary nodule in the left upper lobe, suspicious for malignancy. Recommend further evaluation with dedicated CT of the chest when clinically appropriate. 6. Large right anterior chest wall and supraclavicular lipomas. Impression #1-[address] Ron on 09/16/2022 11:18 PM
--- NOTE | ~2022-09-16 | CT_ITS ---
EXAMINATION: CT angio head neck, CT head/brain wo IV con, CT cervical spine wo IV con CLINICAL INFORMATION: Reason for Exam TIA/ CVA, slurred speech COMPARISON: None. TECHNIQUE: Initial noncontrast audit partner imaging of the head and cervical spine was performed. Noncontrast head CT was also performed. Test bolus sequences followed by intravenous administration 70 mL of Omnipaque 350. Helical imaging was performed in the axial plane from the aortic arch to the skull vertex. Delayed postcontrast imaging of the head was also performed. The data was processed at the optometric technologist's workstation for generation of MIP sequences. Angled MIPs and volume rendered reformatted images were also generated at an offline 3D workstation. Stenoses are assessed in accordance with NASCET criteria unless otherwise indicated. DLP: 1534 mGy-cm This CT examination was performed using dose optimization techniques as appropriate, variously including the following: *Automated exposure control. *Adjustment of mA and/or kV according to patient size (this includes techniques or standardized protocols for targeted exams where dose is matched to indication/reason for exam; i.e. extremities or head). *Use of iterative reconstruction technique. FINDINGS: CT Head: No acute osseous or soft tissue abnormality. The mastoid air cells and visualized portions of the paranasal sinuses are well aerated. There is no evidence of acute intracranial hemorrhage or territorial infarction. No abnormal mass effect or midline shift is seen. Teran to white matter differentiation is well preserved. No extra-axial fluid collections are identified. No hydrocephalus. No significant volume loss. There is no abnormal attenuation within the brain parenchyma. Hyperdensity along the distal left M1 and proximal M2 segments corresponding to thrombus as demonstrated on CTA. CT cervical spine: There is no evidence of acute cervical spine fracture. Vertebral bodies remain normal in height. Alignment is maintained. Moderate to advanced multilevel cervical spondylosis. No pre- or paravertebral soft tissue abnormality is identified. CT Neck: The thyroid gland is normal. Large lipomas involving the right supraclavicular fossa and upper anterior chest wall. CT Upper Chest: Moderate pulmonary emphysema. Partially visualized spiculated pulmonary nodule in the left upper lobe. The upper mediastinum are within normal limits. Neck CTA: Aortic Arch: Normal contour and caliber. Classic 3 vessel branching pattern of the aortic arch. Great Vessel Origins: Mild calcified atherosclerotic disease without significant stenosis of the branch origins. Right Common Carotid Artery: No focal stenosis or occlusion. Cervical Right Internal Carotid Artery: Calcific atherosclerotic disease of the carotid bulb and proximal internal carotid artery causing less than 50% stenosis. Left Common Carotid Artery: Mild stenosis of the mid left common carotid artery related to partially calcified atherosclerotic plaque. Cervical Left Internal Carotid Artery: Heavy atherosclerotic calcification of the left carotid bifurcation with complete occlusion of the left internal carotid artery from its origin. There is absent opacification of the entire cervical course of the left ICA. Cervical Right Vertebral Artery: No focal stenosis or occlusion. Cervical Left Vertebral Artery: Slightly dominant No focal stenosis or occlusion. Brain CTA: Intracranial Internal Carotid Arteries: There is gradual reconstitution of the proximal petrous left internal carotid artery which otherwise appears grossly patent throughout its intracranial course. No significant stenosis of the intracranial right internal carotid artery. Right Anterior Cerebral Artery: Normal A1 segment. Normal opacification of the distal CHIO segments. Left Anterior Cerebral Artery: Normal A1 segment. Normal opacification of the distal CHIO segments. Anterior Communicating Artery: Normal. Right Middle Cerebral Artery: Normal M1 segment of the MCA without focal stenosis or occlusion. Normal arborization of the distal segments. Left Middle Cerebral Artery: There is tandem near occlusive thrombus involving the mid to distal M1 segment of the left MCA beginning approximately 6 mm from the vessel origin and long segment occlusion of a left M2 branch in the anterior sylvian fissure. There is some reconstitution of the distal left MCA arterial tree, likely via collateralization. Right Vertebral Artery: Normal V4 segment. Left Vertebral Artery: Normal V4 segment. Basilar Artery: Normal without focal stenosis or occlusion. Normal appearance of the proximal superior cerebellar arteries. Right Posterior Cerebral Artery: Normal P1 segment. Normal opacification of the distal SAND SCREENER segments. Left Posterior Cerebral Artery: Normal P1 segment. Normal opacification of the distal SAND SCREENER segments. Normal opacification of the superior sagittal, straight, transverse, and sigmoid sinuses. CT/CT cervical spine wo IV con IMPRESSION: 1. 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 Near occlusive thrombi involving the mid to distal M1 segment of the left MCA and complete occlusion of a left M2 branch. 3. No acute intracranial hemorrhage, mass effect, hydrocephalus, or acute territorial edematous infarction. 4. No acute fracture or traumatic malalignment of the cervical spine. 5. Pulmonary emphysema and partially visualized spiculated pulmonary nodule in the left upper lobe, suspicious for malignancy. Recommend further evaluation with dedicated CT of the chest when clinically appropriate. 6. Large right anterior chest wall and supraclavicular lipomas. Impression #1-[address] Ron on 09/16/2022 11:18 PM
[2022-09-16 21:17] VITALS: BP 127/95; BP 138/68; PULSE 102; PULSE 104; RESP 16; TEMP 36.6; O2SAT 96; O2SAT 99; BMI 18.8
--- NOTE | 2022-09-16 21:35 | ECG_ITS ---
Test Reason : FALL Blood Pressure : / mmHG Vent. Rate : 100 BPM Atrial Rate : 100 BPM P-R Int : 144 ms QRS Dur : 080 ms QT Int : 346 ms P-R-T Axes : 082 052 072 degrees QTc Int : 446 ms Normal sinus rhythm Anteroseptal infarct (cited on or before 10-OCT-2019) Abnormal ECG When compared with ECG of 30-JAN-2022 18:11, QT has lengthened Referred By: Neena Ron Electronically Signed By:Darrell Man
--- NOTE | 2022-09-16 21:40 | ED_ITS ---
HPI - Alcohol General Chief Complaint: Altered Mental Status Stated Complaint: etoh and fall Time Seen by Provider: 09/16/22 21:19 Source: EMS Mode of arrival: EMS Limitations: altered mental status History of Present Illness HPI narrative: Patient comes to the emergency room via EMS from home. Patient's family called EMS because they found him on the floor, altered. Patient had an unwitnessed fall, no bloody nose when this happened. EMS reports that the family was unable to answer when was the last time that the patient was seen well, per EMS, they were unable to get any significant history from the family. According to EMS, the family reported to them that the patient is known to drink alcohol heavily. Patient is awake and alert but not following directions, unable to have a coherent conversation, occasionally answers yeah . EMS reports that the initial glucose was in the 130s Related Data Previous Rx's Medication Instructions Recorded cefuroxime axetil 500 mg tablet 500 mg PO BID 10 days #20 tabs 04/30/21 ondansetron 4 mg disintegrating 4 mg PO Q8H PRN nausea and 04/30/21 tablet vomiting #20 tabs phenazopyridine 100 mg tablet 100 mg PO TID PRN pain 6 doses #6 04/30/21 (Pyridium) tabs azithromycin 250 mg tablet 250 mg PO DAILY 4 days #4 tabs 01/30/22 prednisone 20 mg tablet 60 mg PO DAILY #12 tabs 01/30/22 Allergies Allergy/AdvReac Type Severity Reaction Status Date / Time No Known Allergies Allergy Verified 01/30/22 12:54 Review of Systems Review of Systems: Yes Unobtainable due to mental status PMFSH Past Medical History Medical History COPD (chronic obstructive pulmonary disease) Hypertension Social History Social History Alcohol intake: current Alcohol intake frequency: 0-2 drinks per day Patient Tobacco Use Status: Current everyday Tobacco user Smoked in Last 30 Days: Yes Use of substances other than those prescribed or required for medical reasons: Yes Substance Use Type: Heroin Advance Directives: No Advance Directives Information Provided: No Physical Exam ED Vital Signs: Vital Signs - 24 hr 09/16/22 21:17 09/16/22 21:45 Temperature 97.8 F 98.1 F Pulse Rate 102 H 103 H Respiratory Rate 16 16 Blood Pressure 127/95 H 127/95 H Pulse Oximetry 96 95 Oxygen Delivery Method Room Air BMI result Body Mass Index 18.8 Const Other: Appearance: Alert. No acute distress, confused, Eyes: Pupils equal, round and reactive to light. ENT: Pharynx normal. Neck: Normal inspection. Neck supple. No lymph nodes noted. No crepitus CVS: Normal heart rate and rhythm. Pulses normal. Normal S1 and S2 Respiratory: No respiratory distress. Breath sounds normal. No Wheezing. No rales Abdomen: Soft and nontender. No rigidity. No distention. Skin: Skin warm and dry. Normal skin color. Normal skin turgor. Extremities: No lower extremity edema. No Lacerations. No Rash Neuro: Unable to participating cranial nerve assessment, not following any directions, repeating questions, speech slurred Psych: calm, cooperative, confused NIH Stroke Scale Level of Consciousness: Alert Level of Consciousness Questions: Answers neither question correctly Level of Consciousness Commands: Performs neither task correctly Best Gaze: Normal Visual: No visual loss Facial Palsy: Minor paralyis Motor Arm (Right): No drift Motor Arm (Left): No drift Motor Leg (Right): No drift Motor Leg (Left): No drift Limb Ataxia: Absent Sensory: Normal Best Language: Severe aphasia Dysarthia: Severe dysarthria Extinction and Inattention: No abnormality Score: 9 Course Course Course Narrative: Per EMS, family reported that the patient has history of alcohol, likely fell. all Of patient's labs and imaging pending. It is unclear when was the last time that the patient was seen well. 22:20 patient's daughter is at bedside. She reports that the patient is usually alert and oriented x3, normal affect, very talkative. The daughter reports that the last time that the patient was seen well was approximately between 4 and 17:00 (approximately 4.5 to 5 hours ago). The patient reported that approximately at 14:23, he was feeling very weird, had trouble thinking, coming with sentences/words. Then his symptoms resolved. Approximately around 9-930 p.m., the patient's other daughter, noticed that the patient was locked up in his room. Seems that the patient was trying to walk towards the door, said he had trouble on locking the door, and then fell behind the door. The patient's daughter walk around the house, broke a window and got into the house. Then 911 was called. Overall, at this time that the patient's daughter gives us a full history, the last time that the patient was seen well was almost 5 hours ago. 23:20 I discussed the CTA findings with [facility], they state has been paged. I discussed the patient with Dr. Mitchell from vascular Neurology. Patient will be going to the emergency room for a scan to determine if the brain tissue is still viable. I also discussed the patient with [facility] ED attending, serena de la garza will be transferred. I discussed all of the above mentioned with the patient's daughter. Of Note, there was an incidental finding on patient's CT scan, there is a pulmonary nodule in the left upper lobe, suspicious for malignancy. He will need further evaluation. Medical Decision Making Differential Diagnosis Differential Diagnoses: The differential diagnosis associated with the presentation includes (Alcohol intoxication, brain bleed, CVA) Admission/Observation Consideration of admission/observation: Escalation of care including admission/observation considered (After discussing the CTA with our radiologist, patient has several thrombi, patient is to be transferred to [facility] Consult Healthcare Provider Management of the patient was discussed with: Sourcing Manager (Dr. Krause from vascular neurology) Lab Data MDM Lab Attestation statement: I reviewed the patient's lab results. 09/16/22 21:43 09/16/22 21:43 Labs: Lab Results 09/16/22 09/16/22 09/16/22 Range/Units 21:38 21:43 21:43 WBC 13.2 H (4.8-10.8) X10*3/uL RBC 4.10 L (4.60-5.80) X10*6/uL Hgb 12.6 L (14.0-18.0) g/dl Hct 38.5 L (42.0-52.0) % MCV 93.9 (80.0-98.0) fL MCH 30.7 (27.0-33.0) pg MCHC 32.7 (31.0-36.0) g/dl RDW 13.0 (11.0-16.0) % Plt Count 197 (160-400) X10*3/uL MPV 10.9 (9.4-12.4) fL Immature Gran % (Auto) 0.3 (0.0-0.4) % Neut % (Auto) 71.1 (45-73) % Lymph % (Auto) 17.9 L (20-40) % [place] % (Auto) 6.5 (2-11) % Eos % (Auto) 3.9 (0-4) % Baso % (Auto) 0.3 (0-2) % Lymph # (Auto) 2.4 (1.2-4.9) X10*3/uL [place] # (Auto) 0.9 (0.1-1.2) X10*3/uL Eos # (Auto) 0.5 H (0.0-0.4) X10*3/uL Baso # (Auto) 0.0 (0.0-0.2) X10*3/uL Abs Immat Gran (auto) 0.04 H (0.00-0.03) X10*3/uL Absolute Neuts (auto) 9.4 H (2.0-8.3) x10*3/uL Absolute Nucleated RBC 0.000 (0.0-0.012) X10*3/uL Nucleated RBC % (auto) 0.0 (0.0-0.2) /100WBC PT (10.0-13.1) SEC INR (0.9-1.1) VBG pH (7.32-7.43) VBG pCO2 mmHg VBG pO2 mmHg VBG HCO3 (22-26) mmol/L VBG O2 Saturation % VBG Base Excess mmol/L Sodium 136 (135-145) mmol/L Potassium 4.7 (3.3-5.1) mmol/L Chloride 100 (96-108) mmol/L Carbon Dioxide 26 (22-29) mmol/L Anion Gap 15 (12-20) BUN 13 (9-16) mg/dL Creatinine 0.71 (0.5-1.4) mg/dL Estim Creat Clear Calc 71.6 Estimated GFR > 60 POC Glucose 94 (60-115) mg/dL Random Glucose 101 (60-115) mg/dL Calcium 8.9 D (8.4-10.2) mg/dL Magnesium 2.0 (1.6-2.6) mg/dL Total Bilirubin 0.6 (0.0-1.0) mg/dL Direct Bilirubin 0.2 (0.0-0.5) mg/dL AST 34 (5-37) U/L ALT 18 (0-40) U/L Alkaline Phosphatase 58 (39-117) U/L Ammonia (13-55) umol/L Troponin I High Sens (<3.5-35.0) ng/L Total Protein 6.9 (6.5-8.0) g/dL Albumin 4.1 (3.5-5.0) g/dL Lipase 21 (8-78) U/L Urine Color Urine Appearance Urine pH (5.0-9.0) Ur Specific [place] (1.005-1.025) Urine Protein (Neg-Trace) mg/dL Urine Glucose (UA) (Negative) mg/dL Urine Ketones (Negative) mg/dL Urine Blood (Negative) Urine Nitrite (Negative) Ur Leukocyte Esterase (Negative) Urine RBC (0-2) /HPF Urine WBC (0-5) /HPF Ur Squamous Epith Cells (0-2) /HPF Urine Bacteria (None Seen) Hyaline Casts (0-2) /LPF Urine Opiates Screen (Not Detect) Urine Fentanyl Screen (Not Detect) Ur Barbiturates Screen (Not Detect) Ur Phencyclidine Scrn (Not Detect) Ur Amphetamines Screen (Not Detect) U Benzodiazepines Scrn (Not Detect) Urine Cocaine Screen (Not Detect) U Marijuana (THC) Screen (Not Detect) Ethyl Alcohol 100 mg/dL COVID-19 (SKYLER) (Negative) COVID-19 Clin Com 09/16/22 09/16/22 09/16/22 Range/Units 21:43 21:43 21:43 WBC (4.8-10.8) X10*3/uL RBC (4.60-5.80) X10*6/uL Hgb (14.0-18.0) g/dl Hct (42.0-52.0) % MCV (80.0-98.0) fL MCH (27.0-33.0) pg MCHC (31.0-36.0) g/dl RDW (11.0-16.0) % Plt Count (160-400) X10*3/uL MPV (9.4-12.4) fL Immature Gran % (Auto) (0.0-0.4) % Neut % (Auto) (45-73) % Lymph % (Auto) (20-40) % [place] % (Auto) (2-11) % Eos % (Auto) (0-4) % Baso % (Auto) (0-2) % Lymph # (Auto) (1.2-4.9) X10*3/uL [place] # (Auto) (0.1-1.2) X10*3/uL Eos # (Auto) (0.0-0.4) X10*3/uL Baso # (Auto) (0.0-0.2) X10*3/uL Abs Immat Gran (auto) (0.00-0.03) X10*3/uL Absolute Neuts (auto) (2.0-8.3) x10*3/uL Absolute Nucleated RBC (0.0-0.012) X10*3/uL Nucleated RBC % (auto) (0.0-0.2) /100WBC PT 11.3 (10.0-13.1) SEC INR 1.0 (0.9-1.1) VBG pH (7.32-7.43) VBG pCO2 mmHg VBG pO2 mmHg VBG HCO3 (22-26) mmol/L VBG O2 Saturation % VBG Base Excess mmol/L Sodium (135-145) mmol/L Potassium (3.3-5.1) mmol/L Chloride (96-108) mmol/L Carbon Dioxide (22-29) mmol/L Anion Gap (12-20) BUN (9-16) mg/dL Creatinine (0.5-1.4) mg/dL Estim Creat Clear Calc Estimated GFR POC Glucose (60-115) mg/dL Random Glucose (60-115) mg/dL Calcium (8.4-10.2) mg/dL Magnesium (1.6-2.6) mg/dL Total Bilirubin (0.0-1.0) mg/dL Direct Bilirubin (0.0-0.5) mg/dL AST (5-37) U/L ALT (0-40) U/L Alkaline Phosphatase (39-117) U/L Ammonia (13-55) umol/L Troponin I High Sens 4.0 (<3.5-35.0) ng/L Total Protein (6.5-8.0) g/dL Albumin (3.5-5.0) g/dL Lipase (8-78) U/L Urine Color Urine Appearance Urine pH (5.0-9.0) Ur Specific [place] (1.005-1.025) Urine Protein (Neg-Trace) mg/dL Urine Glucose (UA) (Negative) mg/dL Urine Ketones (Negative) mg/dL Urine Blood (Negative) Urine Nitrite (Negative) Ur Leukocyte Esterase (Negative) Urine RBC (0-2) /HPF Urine WBC (0-5) /HPF Ur Squamous Epith Cells (0-2) /HPF Urine Bacteria (None Seen) Hyaline Casts (0-2) /LPF Urine Opiates Screen (Not Detect) Urine Fentanyl Screen (Not Detect) Ur Barbiturates Screen (Not Detect) Ur Phencyclidine Scrn (Not Detect) Ur Amphetamines Screen (Not Detect) U Benzodiazepines Scrn (Not Detect) Urine Cocaine Screen (Not Detect) U Marijuana (THC) Screen (Not Detect) Ethyl Alcohol mg/dL COVID-19 (SKYLER) Negative (Negative) COVID-19 Clin Com See Note 09/16/22 09/16/22 09/16/22 Range/Units 22:09 22:58 23:00 WBC (4.8-10.8) X10*3/uL RBC (4.60-5.80) X10*6/uL Hgb (14.0-18.0) g/dl Hct (42.0-52.0) % MCV (80.0-98.0) fL MCH (27.0-33.0) pg MCHC (31.0-36.0) g/dl RDW (11.0-16.0) % Plt Count (160-400) X10*3/uL MPV (9.4-12.4) fL Immature Gran % (Auto) (0.0-0.4) % Neut % (Auto) (45-73) % Lymph % (Auto) (20-40) % [place] % (Auto) (2-11) % Eos % (Auto) (0-4) % Baso % (Auto) (0-2) % Lymph # (Auto) (1.2-4.9) X10*3/uL [place] # (Auto) (0.1-1.2) X10*3/uL Eos # (Auto) (0.0-0.4) X10*3/uL Baso # (Auto) (0.0-0.2) X10*3/uL Abs Immat Gran (auto) (0.00-0.03) X10*3/uL Absolute Neuts (auto) (2.0-8.3) x10*3/uL Absolute Nucleated RBC (0.0-0.012) X10*3/uL Nucleated RBC % (auto) (0.0-0.2) /100WBC PT (10.0-13.1) SEC INR (0.9-1.1) VBG pH 7.37 (7.32-7.43) VBG pCO2 50 mmHg VBG pO2 48 mmHg VBG HCO3 29 H (22-26) mmol/L VBG O2 Saturation 76.0 % VBG Base Excess 3.4 mmol/L Sodium (135-145) mmol/L Potassium (3.3-5.1) mmol/L Chloride (96-108) mmol/L Carbon Dioxide (22-29) mmol/L Anion Gap (12-20) BUN (9-16) mg/dL Creatinine (0.5-1.4) mg/dL Estim Creat Clear Calc Estimated GFR POC Glucose (60-115) mg/dL Random Glucose (60-115) mg/dL Calcium (8.4-10.2) mg/dL Magnesium (1.6-2.6) mg/dL Total Bilirubin (0.0-1.0) mg/dL Direct Bilirubin (0.0-0.5) mg/dL AST (5-37) U/L ALT (0-40) U/L Alkaline Phosphatase (39-117) U/L Ammonia 27 (13-55) umol/L Troponin I High Sens (<3.5-35.0) ng/L Total Protein (6.5-8.0) g/dL Albumin (3.5-5.0) g/dL Lipase (8-78) U/L Urine Color Yellow Urine Appearance Clear Urine pH 5.5 (5.0-9.0) Ur Specific [place] >= 1.030 H (1.005-1.025) Urine Protein 30 (1+) H (Neg-Trace) mg/dL Urine Glucose (UA) Negative (Negative) mg/dL Urine Ketones Negative (Negative) mg/dL Urine Blood Negative (Negative) Urine Nitrite Negative (Negative) Ur Leukocyte Esterase Negative (Negative) Urine RBC 0-2 (0-2) /HPF Urine WBC 0-5 (0-5) /HPF Ur Squamous Epith Cells 0-2 (0-2) /HPF Urine Bacteria None Seen (None Seen) Hyaline Casts 3-5 (0-2) /LPF Urine Opiates Screen (Not Detect) Urine Fentanyl Screen (Not Detect) Ur Barbiturates Screen (Not Detect) Ur Phencyclidine Scrn (Not Detect) Ur Amphetamines Screen (Not Detect) U Benzodiazepines Scrn (Not Detect) Urine Cocaine Screen (Not Detect) U Marijuana (THC) Screen (Not Detect) Ethyl Alcohol mg/dL COVID-19 (SKYLER) (Negative) COVID-19 Clin Com 09/16/22 Range/Units 23:00 WBC (4.8-10.8) X10*3/uL RBC (4.60-5.80) X10*6/uL Hgb (14.0-18.0) g/dl Hct (42.0-52.0) % MCV (80.0-98.0) fL MCH (27.0-33.0) pg MCHC (31.0-36.0) g/dl RDW (11.0-16.0) % Plt Count (160-400) X10*3/uL MPV (9.4-12.4) fL Immature Gran % (Auto) (0.0-0.4) % Neut % (Auto) (45-73) % Lymph % (Auto) (20-40) % [place] % (Auto) (2-11) % Eos % (Auto) (0-4) % Baso % (Auto) (0-2) % Lymph # (Auto) (1.2-4.9) X10*3/uL [place] # (Auto) (0.1-1.2) X10*3/uL Eos # (Auto) (0.0-0.4) X10*3/uL Baso # (Auto) (0.0-0.2) X10*3/uL Abs Immat Gran (auto) (0.00-0.03) X10*3/uL Absolute Neuts (auto) (2.0-8.3) x10*3/uL Absolute Nucleated RBC (0.0-0.012) X10*3/uL Nucleated RBC % (auto) (0.0-0.2) /100WBC PT (10.0-13.1) SEC INR (0.9-1.1) VBG pH (7.32-7.43) VBG pCO2 mmHg VBG pO2 mmHg VBG HCO3 (22-26) mmol/L VBG O2 Saturation % VBG Base Excess mmol/L Sodium (135-145) mmol/L Potassium (3.3-5.1) mmol/L Chloride (96-108) mmol/L Carbon Dioxide (22-29) mmol/L Anion Gap (12-20) BUN (9-16) mg/dL Creatinine (0.5-1.4) mg/dL Estim Creat Clear Calc Estimated GFR POC Glucose (60-115) mg/dL Random Glucose (60-115) mg/dL Calcium (8.4-10.2) mg/dL Magnesium (1.6-2.6) mg/dL Total Bilirubin (0.0-1.0) mg/dL Direct Bilirubin (0.0-0.5) mg/dL AST (5-37) U/L ALT (0-40) U/L Alkaline Phosphatase (39-117) U/L Ammonia (13-55) umol/L Troponin I High Sens (<3.5-35.0) ng/L Total Protein (6.5-8.0) g/dL Albumin (3.5-5.0) g/dL Lipase (8-78) U/L Urine Color Urine Appearance Urine pH (5.0-9.0) Ur Specific [place] (1.005-1.025) Urine Protein (Neg-Trace) mg/dL Urine Glucose (UA) (Negative) mg/dL Urine Ketones (Negative) mg/dL Urine Blood (Negative) Urine Nitrite (Negative) Ur Leukocyte Esterase (Negative) Urine RBC (0-2) /HPF Urine WBC (0-5) /HPF Ur Squamous Epith Cells (0-2) /HPF Urine Bacteria (None Seen) Hyaline Casts (0-2) /LPF Urine Opiates Screen Not Detected (Not Detect) Urine Fentanyl Screen Not Detected (Not Detect) Ur Barbiturates Screen Not Detected (Not Detect) Ur Phencyclidine Scrn Not Detected (Not Detect) Ur Amphetamines Screen Not Detected (Not Detect) U Benzodiazepines Scrn Not Detected (Not Detect) Urine Cocaine Screen POSITIVE H (Not Detect) U Marijuana (THC) Screen Not Detected (Not Detect) Ethyl Alcohol mg/dL COVID-19 (SKYLER) (Negative) COVID-19 Clin Com Independent Interpretation I performed an independent interpretation of an: EKG (My interpretation: Sinus rhythm, heart rate 100, no ST segment depressions or elevations, no T-wave inversions, QTC 446) and CT Scan (My interpretation of head CT: No hemorrhage present, I do not see any infarcts) Radiology Impression Discussion of test interpretation with radiology: I have reviewed the radiologist's reading. Radiologist Impression: FINDINGS: CT Head: No acute osseous or soft tissue abnormality. The mastoid air cells and visualized portions of the paranasal sinuses are well aerated. There is no evidence of acute intracranial hemorrhage or territorial infarction. No abnormal mass effect or midline shift is seen. Teran to white matter differentiation is well preserved. No extra-axial fluid collections are identified. No hydrocephalus. No significant volume loss. There is no abnormal attenuation within the brain parenchyma. Hyperdensity along the distal left M1 and proximal M2 segments corresponding to thrombus as demonstrated on CTA. CT cervical spine: There is no evidence of acute cervical spine fracture. Vertebral bodies remain normal in height.? ? Alignment is maintained.? Moderate to advanced multilevel cervical spondylosis. No pre- or paravertebral soft tissue abnormality is identified.? CT Neck: The thyroid gland is normal. Large lipomas involving the right supraclavicular fossa and upper anterior chest wall. CT Upper Chest: Moderate pulmonary emphysema. Partially visualized spiculated pulmonary nodule in the left upper lobe. The upper mediastinum are within normal limits. Neck CTA: Aortic Arch: Normal contour and caliber. Classic 3 vessel branching pattern of the aortic arch. Great Vessel Origins: Mild calcified atherosclerotic disease without significant stenosis of the branch origins. Right Common Carotid Artery: No focal stenosis or occlusion. Cervical Right Internal Carotid Artery: Calcific atherosclerotic disease of the carotid bulb and proximal internal carotid artery causing less than 50% stenosis. Left Common Carotid Artery: Mild stenosis of the mid left common carotid artery related to partially calcified atherosclerotic plaque. Cervical Left Internal Carotid Artery: Heavy atherosclerotic calcification of the left carotid bifurcation with complete occlusion of the left internal carotid artery from its origin. There is absent opacification of the entire cervical course of the left ICA. Cervical Right Vertebral Artery: No focal stenosis or occlusion. Cervical Left Vertebral Artery: Slightly dominant No focal stenosis or occlusion. Brain CTA: Intracranial Internal Carotid Arteries: There is gradual reconstitution of the proximal petrous left internal carotid artery which otherwise appears grossly patent throughout its intracranial course. No significant stenosis of the intracranial right internal carotid artery. Right Anterior Cerebral Artery: Normal A1 segment. Normal opacification of the distal CHIO segments. Left Anterior Cerebral Artery: Normal A1 segment. Normal opacification of the distal CHIO segments. Anterior Communicating Artery: Normal. Right Middle Cerebral Artery: Normal M1 segment of the MCA without focal stenosis or occlusion. Normal arborization of the distal segments. Left Middle Cerebral Artery: There is tandem near occlusive thrombus involving the mid to distal M1 segment of the left MCA beginning approximately 6 mm from the vessel origin and long segment occlusion of a left M2 branch in the anterior sylvian fissure. There is some reconstitution of the distal left MCA arterial tree, likely via collateralization. Right Vertebral Artery: Normal V4 segment. Left Vertebral Artery: Normal V4 segment. Basilar Artery: Normal without focal stenosis or occlusion. Normal appearance of the proximal superior cerebellar arteries. Right Posterior Cerebral Artery: Normal P1 segment. Normal opacification of the distal ELECTROCARDIOGRAPH TECHNICIAN segments. Left Posterior Cerebral Artery: Normal P1 segment. Normal opacification of the distal ELECTROCARDIOGRAPH TECHNICIAN segments. Normal opacification of the superior sagittal, straight, transverse, and sigmoid sinuses. CT/CT head/brain wo IV con IMPRESSION: ? 1.? Complete occlusion of the cervical left internal carotid artery with reconstitution of the distal petrous segment and widely patent intracranial course ? 2.? Near occlusive thrombi involving the mid to distal M1 segment of the left MCA and complete occlusion of a left M2 branch. ? 3.? No acute intracranial hemorrhage, mass effect, hydrocephalus, or acute territorial edematous infarction. ? 4.? No acute fracture or traumatic malalignment of the cervical spine. ? 5.? Pulmonary emphysema and partially visualized spiculated pulmonary nodule in the left upper lobe, suspicious for malignancy. Recommend further evaluation with dedicated CT of the chest when clinically appropriate. ? 6.? Large right anterior chest wall and supraclavicular lipomas. Medications Administered Discontinued Medications Generic Name Dose Route Start Last Admin Trade Name Freq PRN Reason Stop Dose Admin Iohexol 100 ml 09/16/22 22:42 09/16/22 22:43 Iohexol 350 Mg/Ml 100 Ml Infus..Btl IV 09/16/22 22:43 70 ml ONCE ONE Administration Critical Care Time Critical Care Time Critical Care Time: Yes Total Critical Care Time: 60 Attestation: I have personally provided critical care time. Time includes review of lab data, radiology results, discussion with consultants, and monitoring for potential decompensation. Intervention performed as documented. Discharge Plan Discharge Clinical Impression: Cerebrovascular accident (CVA) due to thrombosis Patient Disposition: [facility] Transfer Details: [facility] ED to ED, accetped by ED attending and Dr. Krause from vascular neurology Prescriptions: No Action cefuroxime axetil 500 mg tablet 500 mg PO BID 10 Days Qty: 20 0RF ondansetron 4 mg tablet,disintegrating 4 mg PO Q8H PRN (Reason: nausea and vomiting) Qty: 20 0RF phenazopyridine [Pyridium] 100 mg tablet 100 mg PO TID PRN (Reason: pain) Qty: 6 0RF azithromycin 250 mg tablet 250 mg PO DAILY 4 Days Qty: 4 0RF Rx Instructions: start on day 2 of therapy prednisone 20 mg tablet 60 mg PO DAILY Qty: 12 0RF
[2022-09-16 21:45] VITALS: BP 127/95; PULSE 103; RESP 16; TEMP 36.7; O2SAT 95
--- NOTE | 2022-09-16 21:47 | MHC.EDTECH ---
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
[2022-09-16 21:50] LABS: Glucose, Whole Blood 94 mg/dL (60-115)
[2022-09-16 21:52] LABS: MANUAL DIFF FLAG NO
[2022-09-16 21:53] LABS: Basophils Percent Auto 0.3 % (0-2); Eosinophils Absolute Auto 0.5 X10*3/uL (0.0-0.4); Eosinophils Percent Auto 3.9 % (0-4); Hematocrit 38.5 % (42.0-52.0); Hemoglobin 12.6 g/dl (14.0-18.0); Imm Gran Abs Auto 0.04 X10*3/uL (0.00-0.03); Imm Gran Pct Auto 0.3 % (0.0-0.4); Lymphocytes Absolute Auto 2.4 X10*3/uL (1.2-4.9); Lymphocytes Percent Auto 17.9 % (20-40); Mean Corpuscular HGB Conc 32.7 g/dl (31.0-36.0); Mean Corpuscular Hemoglobin 30.7 pg (27.0-33.0); Mean Corpuscular Volume 93.9 fL (80.0-98.0); Mean Platelet Volume 10.9 fL (9.4-12.4); Monocytes Absolute Auto 0.9 X10*3/uL (0.1-1.2); Monocytes Percent Auto 6.5 % (2-11); Neutrophils Absolute Auto 9.4 x10*3/uL (2.0-8.3); Neutrophils Percent Auto 71.1 % (45-73); Platelet Count 197 X10*3/uL (160-400); White Blood Count 13.2 X10*3/uL (4.8-10.8)
[2022-09-16 21:58] LABS: Prothrombin Time 11.3 SEC (10.0-13.1)
[2022-09-16 22:09] LABS: COVID-19 Test Negative (Negative); IDNOW Serial# 6674DD1D
--- NOTE | 2022-09-16 22:16 | PC.NURSE ---
This RN spoke to family, Daughter states that pt had slurred speach and seemed off at 1430 today. MD acosta notified.
[2022-09-16 22:18] LABS: Alanine Aminotransferase 18 U/L (0-40); Albumin Level 4.1 g/dL (3.5-5.0); Alkaline Phosphatase 58 U/L (39-117); Anion Gap 15 (12-20); Aspartate Amino Transferase 34 U/L (5-37); Bilirubin Direct 0.2 mg/dL (0.0-0.5); Bilirubin Total 0.6 mg/dL (0.0-1.0); Blood Urea Nitrogen 13 mg/dL (9-16); Calcium 8.9 mg/dL (8.4-10.2); Carbon Dioxide 26 mmol/L (22-29); Chloride 100 mmol/L (96-108); Creatinine Clr Calc Pharmacy 71.6; Estimated Glomerular Filt Rate > 60; Glucose Random 101 mg/dL (60-115); Lipase 21 U/L (8-78); Potassium 4.7 mmol/L (3.3-5.1); Sodium 136 mmol/L (135-145); Total Protein 6.9 g/dL (6.5-8.0)
[2022-09-16 22:30] LABS: Ammonia 27 umol/L (13-55)
[2022-09-16 22:43] LABS: Ethanol 100 mg/dL
[2022-09-16] MEDS: iohexoL 350 MG/ML 100 ML INFUS..BTL IV (22:43)
--- NOTE | 2022-09-16 23:05 | PC.NURSE ---
pt responds to questions, but unable to understand his responses or they are not appropriate to the questions being asked; not oriented to self, time, situation nor place; last well known time was about 1400 per his daughter, Kathy. Patient fell well on his way to the door when being checked on by other daughter, told daughter he was having a hard time forming sentences which to the daughter was apparent- stated per Kathy; sustained injury to R arm; head strike unknown, appeared dazed and confused per daughter, no LOC
[2022-09-16 23:07] LABS: VBG Base Excess 3.4 mmol/L; VBG HCO3 29 mmol/L (22-26); VBG pCO2 50 mmHg; VBG pH 7.37 (7.32-7.43); VBG pO2 48 mmHg
[2022-09-16 23:07] LABS: Venous Blood Gas Refer to POC result
[2022-09-16 23:11] LABS: Appearance Urine Clear; Color Urine Yellow; Glucose Urine UA Negative (Negative); Leukocyte Esterase Urine Negative (Negative); Nitrite Urine Negative (Negative); PH 5.5 (5.0-9.0); Specific Gravity - Urine >= 1.030 (1.005-1.025); UMIC TRIGGER UACC YES; Urine Blood Negative (Negative); Urine Ketones Negative (Negative); Urine Protein 30 (1+) mg/dL (Neg-Trace)
--- NOTE | 2022-09-16 23:12 | PC.NURSE ---
pt sleeping, no apparent distress; daughter at bedside
[2022-09-16 23:28] LABS: Bacteria Urine None Seen (None Seen); RBC Urine 0-2 /HPF (0-2); Squamous Epithelial Cell Urine 0-2 /HPF (0-2); WBC Urine 0-5 /HPF (0-5)
[2022-09-16 23:29] LABS: Amphetamine Screen Urine Not Detected (Not Detect); Barbiturates, Urine Not Detected (Not Detect); Benzodiazepines Screen Urine Not Detected (Not Detect); Cannabinoid Screen Urine Not Detected (Not Detect); Fentanyl, urine Not Detected (Not Detect); Opiate Screen Urine Not Detected (Not Detect); Phencyclidine Screen Urine Not Detected (Not Detect)
[2022-09-17 00:06] LABS: Cocaine Screen Urine POSITIVE (Not Detect)
--- NOTE | 2022-09-17 00:30 | PC.NURSE ---
Pt trx to [facility]. Report given to PANCHITO Mares [facility] ED.
== END 2022-09-17 00:20 | disposition short-term general hospital (02) ==
PROVIDERS: Emergency Provider Emergency Medicine
DX: I63.312 Cerebral infarction due to thrombosis of left middle cerebral artery (principal); I65.22 Occlusion and stenosis of left carotid artery; R47.01 Aphasia; R29.810 Facial weakness; R27.0 Ataxia, unspecified; R47.1 Dysarthria and anarthria; R29.709 NIHSS score 9; F10.90 Alcohol use, unspecified, uncomplicated; Y90.5 Blood alcohol level of 100-119 mg/100 ml; R91.1 Solitary pulmonary nodule; Z20.822 Contact with and (suspected) exposure to COVID-19; I10 Essential (primary) hypertension; F17.210 Nicotine dependence, cigarettes, uncomplicated; Z79.899 Other long term (current) drug therapy
CPT/HCPCS: 36415; 70450; 70496; 70498; 72125; 80048; 80076; 80307; 81001; 82077; 82140; 82803; 82947; 83690; 83735; 84484; 85025; 85610; 87635; 93005; 99285; Q9967

== ENCOUNTER 2024-07-23 16:19 | Emergency (ER) | payer OTHER, MEDICARE, SELFPAY ==
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
[2024-07-23 16:25] VITALS: BP 130/86; BP 153/96; PULSE 100; PULSE 88; RESP 20; TEMP 36.4; O2SAT 99; BMI 16.1
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
[2024-07-23] MEDS: Acetaminophen 325 MG TABLET 975 MG PO (19:07)
[2024-07-23 19:59] VITALS: BP 153/96; PULSE 88; RESP 20; TEMP 36.4; O2SAT 99
== END 2024-07-23 19:32 | disposition home or self-care (01) ==
PROVIDERS: Emergency Provider Internal Medicine
DX: S80.01XA Contusion of right knee, initial encounter (principal); S50.312A Abrasion of left elbow, initial encounter; V43.52XA Car driver injured in collision with other type car in traffic accident, initial encounter; Y93.89 Activity, other specified; Y92.410 Unspecified street and highway as the place of occurrence of the external cause; Y99.9 Unspecified external cause status
CPT/HCPCS: 70450; 72125; 73080; 73564; 99283; 99284